=== PATIENT | female | born 1970 | race Caucasian/White ===

== ENCOUNTER 2023-01-16 20:46 | Outpatient (REF) | payer BC, SELFPAY ==
[2023-01-23 11:28] LABS: Age Gdln ACOG Testing Note (.); HPV Aptima Negative (Negative); IGP, Aptima HPV, rfx 16/18,45 Note (.)
== END 2023-01-16 20:47 | disposition home or self-care (01) ==
LOC: LAB 20:46
PROVIDERS: Visit Provider Obstetrics & Gynecology
DX: Z12.4 Encounter for screening for malignant neoplasm of cervix (principal); Z11.51 Encounter for screening for human papillomavirus (HPV)
CPT/HCPCS: 87624; G0145